=== PATIENT | female | born 1950 | race Caucasian/White ===

== ENCOUNTER 2021-05-06 11:24 | Emergency (ER) | payer MEDICARE, SELFPAY ==
--- NOTE | ~2021-05-06 | CT_ITS ---
CORRECTED REPORT order change 05/07/21 [facility] [place] CT hip LT wo con DATE: 05/06/2021 12:50 INDICATION: Left hip pain. Left gluteal injection. TECHNIQUE: Computed tomography (CT) of the left hip was performed without intravenous contrast. Automated exposure control and iterative reconstruction technique were employed. The dose-length product was 415.69 mGy-cm. COMPARISON: None FINDINGS: There is a stent in left superficial femoral artery. There is mild subcutaneous fat stranding consistent with inflammation. Bone alignment is normal. No fracture. There is moderate left hip osteoarthritis. IMPRESSION: 1. Mild subcutaneous fat stranding, consistent with inflammation. No abscess. 2. Moderate left hip osteoarthritis. Reviewed, dictated and finalized at location A. [employer] MTDD
[2021-05-06 11:33] VITALS: BP 198/84; PULSE 84; RESP 18; TEMP 37; O2SAT 93
--- NOTE | 2021-05-06 12:38 | ED.LOWEXIN ---
HPI - Extremity Injury (Lower) General Chief Complaint: Extremity Injury, Lower Stated Complaint: L hip pain Time Seen by Provider: 05/06/21 12:16 Source: patient History of Present Illness HPI Narrative: Patient presents with left hip pain. She is seeing her pain management doctor got an injection she is unsure as to what it was she thinks maybe it was a steroid. She followed up and got a massage 2 days after her injection on Friday and since then she has had pain starting at her left gluteal area and radiating down to her knee. Pain is achy, constant, worse with trying to move around. Reports she has been unable to move around because it hurts too much. Denies any bowel or bladder incontinence denies any fevers reports it just hurts. Notes a history of arthritis she is of sciatica Related Data Home Medications Medication Instructions Recorded Confirmed amlodipine 2.5 mg PO BID 05/06/21 apixaban 5 mg PO BID 05/06/21 ascorbic acid (vitamin C) 500 mg PO DAILY 05/06/21 aspirin [Aspirin For Children] 81 mg PO DAILY 05/06/21 atorvastatin 40 mg PO HS 05/06/21 calcium carbonate 600 mg PO DAILY 05/06/21 cholecalciferol (vitamin D3) 50 mcg PO DAILY 05/06/21 cyanocobalamin (vitamin B-12) 500 mcg PO DAILY 05/06/21 diltiazem HCl [DILT-XR] 240 mg PO DAILY 05/06/21 doxazosin 12 mg PO DAILY 05/06/21 ferrous sulfate [Iron (ferrous 325 mg PO DAILY 05/06/21 sulfate)] fluticasone propionate 1 spray INTRANASAL DAILY 05/06/21 furosemide 40 mg PO DAILY 05/06/21 Allergies Allergy/AdvReac Type Severity Reaction Status Date / Time Barbiturates Allergy Unknown Agitated Verified 05/06/21 11:48 banana Allergy Hives Verified 05/06/21 11:48 cantaloupe Allergy Hives Verified 05/06/21 11:48 carvedilol Allergy Hypertensio Verified 05/06/21 11:48 n clonidine Allergy Difficulty Verified 05/06/21 11:48 Breathing gabapentin Allergy Hallucinati Verified 05/06/21 11:48 ng meperidine Allergy Nausea and Verified 05/06/21 11:48 Vomiting mirtazapine Allergy Dizziness Verified 05/06/21 11:48 ondansetron [From Zofran] Allergy Difficulty Verified 05/06/21 11:48 Breathing oxycodone Allergy Rash Verified 05/06/21 11:48 riboflavin (vitamin B2) Allergy Hypertensio Verified 05/06/21 11:48 n Sulfa (Sulfonamide Allergy Nausea and Verified 05/06/21 11:48 Antibiotics) Vomiting tiotropium Allergy Hives Verified 05/06/21 11:48 zaleplon Allergy Hallucinati Verified 05/06/21 11:48 ng zolpidem Allergy Hallucinati Verified 05/06/21 11:48 ng lisinopril AdvReac Cough Verified 05/06/21 11:48 SECOBARBITAL SOD (Generic Allergy Y Uncoded 08/24/02 13:41 Allergy) Review of Systems Review of Systems: CONSTITUTIONAL: Denies fever, chills, or sweats. EYES: Denies visual changes, redness, or discharge. ENT: Denies rhinorrhea, congestion, sore throat, or otalgia. CARDIOVASCULAR: Denies chest pain, palpitations, or edema. RESPIRATORY: Denies cough or dyspnea. GASTROINTESTINAL: Denies abdominal pain, nausea, vomiting, or diarrhea. GENITOURINARY: Denies dysuria or hematuria. SKIN: Denies rash or itching. MUSCULOSKELETAL: Denies back pain, joint pain, or myalgia. NEUROLOGIC: Denies headache, numbness, dizziness, or weakness. PSYCHIATRIC: Denies anxiety or depression. All systems reviewed & are unremarkable except as noted in HPI and below PMFSH Past Medical History Medical History (Updated 05/06/21 @ 14:34 by Иван Cook MD) Arthritis Social History Social History (Updated 05/06/21 @ 12:40 by Иван Cook MD) Gender identity (if verbalized by the patient): Female Exam Narrative: GENERAL: Well-appearing, well-nourished, and in no acute distress. HEAD: Normocephalic, atraumatic. EYES: PERRLA and EOMI. ENT: Nares clear, no rhinorrhea or epistaxis. Mucous membranes moist. NECK: Supple. No masses. No JVD EXTREMITIES: Small amount of bruising to the superior aspect of the left gluteus l
[2021-05-06] MEDS: KETOROLAC 30 MG/ML VIAL (*BKC) 15 MG IV PUSH (13:03)
[2021-05-06 13:10] LABS: Basophils Percent Auto 0.1 % (0.2-1.2); Eosinophils Percent Auto 0.3 % (0-4.4); Hemoglobin 13.3 g/dL (12.0-15.0); Immature Granulocyte Absolute 0.08 K/mm3 (0.00-0.031); Immature Granulocyte Percent A 0.9 % (0-0.5); Lymphocytes Percent Auto 10.3 % (18.3-44.2); Mean Corpuscular HGB Conc 31.7 g/dl (32-36); Mean Corpuscular Hemoglobin 31.7 pg (26-34); Mean Corpuscular Volume 100.2 fl (80-100); Mean Platelet Volume 9.7 fl (7.4-10.4); Monocytes Absolute Auto 0.7 K/mm3 (0.1-0.6); Monocytes Percent Auto 8.1 % (2.6-8.5); Neutrophils Percent Auto 80.3 % (45.5-73.1); Platelet Count Result 253 k/mm3 (150-375); Red Blood Count 4.19 M/mm3 (4.2-5.4); White Blood Count 8.8 K/mm3 (4.5-10.0)
[2021-05-06 13:15] LABS: Alanine Aminotransferase 22 U/L (4-35); Albumin Level 3.7 g/dL (3.5-5.1); Alkaline Phosphatase 77 U/L (38-126); Anion Gap 5 mmol/L (8-16); Aspartate Amino Transferase 25 U/L (14-36); Bilirubin,Total 0.4 mg/dL (0.2-1.3); Blood Urea Nitrogen 24 mg/dL (7-17); Calcium 8.8 mg/dL (8.4-10.2); Carbon Dioxide 26 mmol/L (22-30); Chloride 105 mmol/L (98-107); Creatine Kinase 40 U/L (30-135); Estimated CRCL calculation 30 ml/min; Estimated Glomerular Filt Rate 37; Glucose 94 mg/dL (65-110); Potassium 4.5 mmol/L (3.4-5.0); Sodium 136 mmol/L (137-145)
[2021-05-06] MEDS: SODIUM CHLORIDE 0.9% IV 1,000 ML 999 ML IV CONT (13:22)
[2021-05-06 13:24] VITALS: BP 203/86; PULSE 87; RESP 18; O2SAT 94
[2021-05-06] MEDS: diazePAM (*CRX) 5 MG TABLET PO (14:15)
[2021-05-06 14:55] VITALS: BP 203/82; PULSE 88; RESP 16; O2SAT 94
== END 2021-05-06 14:58 | disposition home or self-care (01) ==
PROVIDERS: Emergency Provider Emergency Medicine
DX: M54.32 Sciatica, left side (principal); M16.12 Unilateral primary osteoarthritis, left hip; Z79.01 Long term (current) use of anticoagulants; Z79.82 Long term (current) use of aspirin
CPT/HCPCS: 36415; 73700; 73701; 80053; 82550; 85025; 96361; 96374; 99284; A9270; J1885; J7030; Q9967

== ENCOUNTER 2021-06-12 12:26 | Outpatient (CLI) | payer MEDICARE, SELFPAY ==
--- NOTE | ~2021-06-12 | MR_ITS ---
EXAMINATION: MR lumbar spine wo con DATE: 06/12/2021 13:23 INDICATION: Lumbar radiculopathy. TECHNIQUE: Magnetic resonance imaging (MRI) of the lumbar spine was performed without intravenous con trast. Sequences included sagittal T2-weighted FSE, sagittal T2-weighted FS FSE, sagittal T1-weighted FSE, and axial T2-weighted FSE. COMPARISON: None FINDINGS: There is 15 degrees levoscoliosis of lumbar spine. There is 3 mm retrolisthesis of L1 on L2 . There is a burst fracture of superior endplate of L5 without significant height loss with low signa l fracture line and edema-like marrow signal intensity. There is severely decreased disc height at L1 -L2 and L2-L3 and mildly decreased disc height at L3-L4 with endplate remodeling. The distal spinal c ord signal intensity is normal. The conus medullaris is at T12-L1. There is ligamentum flavum hypertr ophy at the disc levels from L1-L2 through L4-L5. The following disc levels are specifically discusse d: L1-L2: The disc is bulging and has an annular fissure. There is severe bilateral facet joint osteoart hritis. There is moderate right and mild left neural foraminal stenosis. There is mild central canal stenosis. L2-L3: The disc is bulging as an annular fissure. There is severe bilateral facet joint osteoarthriti s. There is moderate right and mild left neural foraminal stenosis. There is mild central canal steno sis. L3-L4: The disc is bulging and has an annular fissure. There is moderate right and severe left facet joint osteoarthritis. There is mild right and moderate left neural foraminal stenosis. There is mild central canal stenosis. L4-L5: The disc is bulging with superimposed left foraminal and extraforaminal extrusion. There is se marry bilateral facet joint osteoarthritis. There is mild right and severe left neural foraminal steno sis. There is mild central canal stenosis. L5-S1: The disc is bulging and has an annular fissure. There is severe bilateral facet joint osteoart hritis. There is mild bilateral neural foraminal stenosis. There is mild central canal stenosis. IMPRESSION: 1. Severe lumbar spondylosis. 2. Lumbar levoscoliosis. Reviewed, dictated and finalized at location A.
== END 2021-06-12 12:27 | disposition home or self-care (01) ==
DX: M47.27 Other spondylosis with radiculopathy, lumbosacral region (principal); M48.07 Spinal stenosis, lumbosacral region; M41.9 Scoliosis, unspecified
CPT/HCPCS: 72148

== ENCOUNTER 2021-07-02 15:02 | Outpatient (CLI) | payer MEDICARE, SELFPAY ==
--- NOTE | ~2021-07-02 | CT_ITS ---
EXAMINATION: CT lumbar spine wo con DATE: 07/02/2021 15:28 INDICATION: Degenerative disc disease. TECHNIQUE: Computed tomography (CT) of the lumbar spine was performed without intravenous contrast. A utomated exposure control and iterative reconstruction technique were employed. The dose-length produ ct was 949.45 mGy-cm. COMPARISON: Lumbar spine MRI 06/12/2021 FINDINGS: There is mild atelectasis versus scarring in right lung lower lobe. There is 17 degrees lev oscoliosis of lumbar spine. There is 3 mm retrolisthesis of L1 on L2 and L2 on L3. Vertebral body hei ghts are normal. There is mildly decreased disc height at T12-L1, severely decreased disc height at L 1-L2 and L2-L3, and moderately decreased disc height at L3-L4 and L4-L5. The following disc levels ar e specifically discussed: L1-L2: The disc is bulging. There is moderate bilateral facet joint osteoarthritis. There is moderate right and mild left neural foraminal stenosis. There is mild central canal stenosis. L2-L3: The disc is bulging. There is moderate bilateral facet joint osteoarthritis. There is moderate bilateral neural foraminal stenosis. There is mild central canal stenosis. L3-L4: The disc is bulging. There is mild right and severe left facet joint osteoarthritis. There is mild right and moderate left neural foraminal stenosis. There is mild central canal stenosis. L4-L5: The disc is bulging with superimposed left foraminal extrusion. There is moderate bilateral fa cet joint osteoarthritis. There is mild right and moderate left neural foraminal stenosis. There is m ild central canal stenosis. L5-S1: The disc is bulging. There is severe bilateral facet joint osteoarthritis. There is mild bilat eral neural foraminal stenosis. There is mild central canal stenosis. IMPRESSION: 1. Severe lumbar spondylosis. 2. Thoracolumbar levoscoliosis. Reviewed, dictated and finalized at location B.
--- NOTE | ~2021-07-02 | CT_ITS ---
EXAMINATION: CT cervical spine wo con DATE: 07/02/2021 15:28 INDICATION: Degenerative disc disease, cervical. TECHNIQUE: Computed tomography (CT) of the cervical spine was performed without intravenous contrast. Automated exposure control and iterative reconstruction technique were employed. The dose-length pro duct was 200.25 mGy-cm. COMPARISON: None FINDINGS: There is mild emphysema. There is 2 mm anterolisthesis of C3 on C4 and C4 on C5 and 2 mm re trolisthesis of C5 on C6. Vertebral body heights are normal. There is severely decreased disc height at C5-C6 and C6-C7. The following disc levels are specifically discussed: C2-C3: There is no uncovertebral joint osteoarthritis. There is mild left facet joint osteoarthritis. There is no neural foraminal stenosis. There is no central canal stenosis. C3-C4: There is mild left uncovertebral joint osteoarthritis. There is severe bilateral facet joint o steoarthritis. There is mild left neural foraminal stenosis. There is no central canal stenosis. C4-C5: There is no uncovertebral joint osteoarthritis. There is mild right and severe left facet join t osteoarthritis. There is mild left neural foraminal stenosis. There is no central canal stenosis. C5-C6: There is severe bilateral uncovertebral joint osteoarthritis. There is mild bilateral facet hui int osteoarthritis. There is mild bilateral neural foraminal stenosis. There is mild central canal st enosis. C6-C7: There is mild right and severe left uncovertebral joint osteoarthritis. There is severe bilate ral facet joint osteoarthritis. There is mild left neural foraminal stenosis. There is no central can al stenosis. C7-T1: There is no uncovertebral joint osteoarthritis. There is moderate right and mild left facet hui int osteoarthritis. There is no neural foraminal stenosis. There is no central canal stenosis. IMPRESSION: 1. Severe cervical spondylosis. Reviewed, dictated and finalized at location B.
== END 2021-07-02 15:03 | disposition home or self-care (01) ==
LOC: ANHIMG 15:03
DX: M50.30 Other cervical disc degeneration, unspecified cervical region (principal); M51.36 Other intervertebral disc degeneration, lumbar region; M47.892 Other spondylosis, cervical region; M47.896 Other spondylosis, lumbar region
CPT/HCPCS: 72125; 72131

== ENCOUNTER 2021-07-23 13:51 | Outpatient (CLI) | payer MEDICARE, SELFPAY ==
--- NOTE | ~2021-07-23 | MR_ITS ---
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 TECHNIQUE: Magnetic resonance imaging (MRI) of the cervical spine was performed without intravenous c ontrast. Sequences included sagittal T2-weighted FSE, sagittal T2-weighted FS FSE, sagittal T1-weight ed FSE, axial MERGE, and axial T2-weighted FSE. COMPARISON: CT cervical spine 07/02/2021 FINDINGS: There is 2 mm retrolisthesis of C5 on C6. Vertebral body heights are normal. There is sever alem decreased disc height at C5-C6 and C6-C7 with endplate remodeling. The spinal cord signal intensi ty is normal, but motion artifact decreases sensitivity and specificity. The following disc levels ar e specifically discussed: C2-C3: The disc does not extend beyond the endplate margin. There is no uncovertebral joint osteoarth ritis. There is mild bilateral facet joint osteoarthritis. There is no neural foraminal stenosis. The re is no central canal stenosis. C3-C4: The disc does not extend beyond the endplate margin. There is mild left uncovertebral joint os teoarthritis. There is severe bilateral facet joint osteoarthritis. There is moderate left neural for aminal stenosis. There is no central canal stenosis. C4-C5: There is a central protrusion. There is no uncovertebral joint osteoarthritis. There is mild r ight and severe left facet joint osteoarthritis. There is mild left neural foraminal stenosis. There is no central canal stenosis. C5-C6: The disc is bulging. There is severe bilateral uncovertebral joint osteoarthritis. There is mi ld bilateral facet joint osteoarthritis. There is mild bilateral neural foraminal stenosis. There is moderate central canal stenosis with ventral and dorsal indentation of the spinal cord. C6-C7: The disc is bulging. There is moderate and severe left uncovertebral joint osteoarthritis. The re is severe bilateral facet joint osteoarthritis. There is moderate left neural foraminal stenosis. There is mild central canal stenosis with ventral indentation of the spinal cord. C7-T1: The disc does not extend beyond the endplate margin. There is no uncovertebral joint osteoarth ritis. There is moderate right and mild left facet joint osteoarthritis. There is no neural foraminal stenosis. There is no central canal stenosis. IMPRESSION: 1. Severe cervical spondylosis. Reviewed, dictated and finalized at location A.
== END 2021-07-23 13:52 | disposition home or self-care (01) ==
DX: M50.020 Cervical disc disorder with myelopathy, mid-cervical region, unspecified level (principal); M47.812 Spondylosis without myelopathy or radiculopathy, cervical region
CPT/HCPCS: 72141